=== PATIENT | male | born 1930 | race Asian ===

== ENCOUNTER 2019-01-29 18:14 | Inpatient (IN) | payer MEDICARE, MEDICAID ==
[~2019-01-29] VITALS: Ht 165.1 cm; Wt 80.3 kg
[2019-01-29 18:30] VITALS: BP 158/40
[2019-01-29] MEDS ORDERED: Nitroglycerin Subl 0.4mg tab SL PRN ×2 (18:30→22:15)
[2019-01-29] MEDS ORDERED: Aspirin Baby 81mg ORAL ONE (18:30)
--- NOTE | 2019-01-29 18:30 | NUR ---
ED Nurse Note: Patient brought in to ER by ambulance from [facility] due to chest pain for last 20 minutes. pt aao x 1-2 and both eyes legally blind and bedrest. skin clean and intact but pale. both buttocks pressure ulcer noted. pt is in gown and on surveillance system monitor.
--- NOTE | 2019-01-29 18:37 | Emergency Room Report ---
History of Present Illness General Chief Complaint: Chest Pain Source: EMS Present Illness HPI Disclaimer: Please note that this report is being documented using DRAGON technology. This can lead to erroneous entry secondary to incorrect interpretation by the dictating instrument. 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 States is been intermittent for the past 2 days. Currently centered over the chest and pressure-like. Does not radiate. No associated shortness of breath. Denies any back pain, lightheadedness, loss of consciousness, vomiting, diaphoresis, abdominal pain. Patient is a poor historian PMH: Hypertension, glaucoma, hearing loss, history of brain bleed, status post pacemaker PSH: Unknown Allergies: None listed Social Hx: Denies drug or alcohol use. Allergies: Coded Allergies: No Known Allergies (Unverified , 01/29/19) Nursing Documentation-PMH Past Medical History: No History, Except For Hx Cardiac Problems: No - legally blind Review of Systems All Other Systems: negative except mentioned in HPI Physical Exam Vital Signs Date Time Temp Pulse Resp B/P (MAP) Pulse Ox O2 Delivery O2 Flow Rate FiO2 01/29/19 18:08 54 16 144/44 (77) 99 Room Air General: Awake and alert, no acute distress HEENT: NC/AT. Hazy opacified corneas bilaterally. Vision grossly diminished. Hearing diminished. Dry mucous membranes Chest Wall: No tenderness, no deformity Cardiovascular: Bradycardic, regular rhythm. heart sounds are distant Resp: Normal work of breathing. No cough, wheezing or crackles appreciated Abdomen: Abdomen is soft, obese, nondistended. Nontender Skin: Intact. No abrasions, laceration or rash over the exposed skin MSK: Normal tone and bulk. Moving all extremities. No obvious deformity. No lower extremity edema Neuro: Awake and alert. Mentating appropriately but poor insight into his medical history and a poor historian overall. Medical Decision Making Diagnostic Impression: Primary Impression: Chest pain Additional Impressions: Heart block AV third degree Elevated troponin Anemia ER Course 88-year-old male prior brain bleed, hypertension presents for evaluation of intermittent chest pain. EKG on arrival shows complete heart block with ventricularly paced rhythm at approximately 50 bpm. The patient currently is reporting chest pain. Will give aspirin and nitroglycerin. Cardiac work-up initiated with labs and x-ray. The patient may require for transfer. Vital signs are otherwise stable aside from bradycardia Laboratory Tests Test 01/29/19 18:40 01/29/19 20:10 White Blood Count 8.0 K/UL (4.8-10.8) Red Blood Count 3.12 M/UL (4.70-6.10) L Hemoglobin 9.6 G/DL (14.2-18.0) L Hematocrit 29.1 % (42.0-52.0) L Mean Corpuscular Volume 93 FL (80-99) Mean Corpuscular Hemoglobin 30.6 PG (27.0-31.0) Mean Corpuscular Hemoglobin Concent 32.8 G/DL (32.0-36.0) Red Cell Distribution Width 12.8 % (11.6-14.8) Platelet Count 267 K/UL (150-450) Mean Platelet Volume 5.7 FL (6.5-10.1) L Neutrophils (%) (Auto) 59.1 % (45.0-75.0) Lymphocytes (%) (Auto) 24.0 % (20.0-45.0) Monocytes (%) (Auto) 7.2 % (1.0-10.0) Eosinophils (%) (Auto) 8.3 % (0.0-3.0) H Basophils (%) (Auto) 1.5 % (0.0-2.0) Prothrombin Time 12.7 SEC (9.30-11.50) H Prothromb Time International Ratio 1.2 (0.9-1.1) H Activated Partial Thromboplast Time 26 SEC (23-33) Sodium Level 137 MMOL/L (136-145) Potassium Level 4.7 MMOL/L (3.5-5.1) Chloride Level 105 MMOL/L (98-107) Carbon Dioxide Level 25 MMOL/L (21-32) Anion Gap 7 mmol/L (5-15) Blood Urea Nitrogen 25 mg/dL (7-18) H Creatinine 1.1 MG/DL (0.55-1.30) Estimat Glomerular Filtration Rate mL/min (>60) Glucose Level 115 MG/DL (74-106) H Calcium Level 9.0 MG/DL (8.5-10.1) Total Bilirubin 0.3 MG/DL (0.2-1.0) Aspartate Amino Transf (AST/SGOT) 46 U/L (15-37) H Alanine Aminotransferase (ALT/SGPT) 74 U/L (12-78) Alkaline Phosphatase 156 U/L (46-116) H Total Creatine Kinase 187 U/L (26-308) Creatine Kinase MB 1.8 NG/ML (0.0-3.6) Creatine Kinase MB Relative Index 0.9 Troponin I 0.060 ng/mL (0.000-0.056) 0.060 ng/mL (0.000-0.056) Pro-B-Type Natriuretic Peptide 3690 pg/mL (0-125) H Total Protein 7.0 G/DL (6.4-8.2) Albumin 2.3 G/DL (3.4-5.0) L Globulin 4.7 g/dL Albumin/Globulin Ratio 0.5 (1.0-2.7) L EKG Diagnostic Results EKG Time: 18:09 Rate: bradycardiac Other Impression Third-degree heart block. Ventricularly paced rhythm. Bradycardia ASA given to the pt in ED: Yes Rhythm Strip Diag. Results Rhythm Strip Time: 18:09 EP Interpretation: yes Rate: 50s Other Impression Bradycardia with third-degree AV block, paced rhythm Chest X-Ray Diagnostic Results Chest X-Ray Diagnostic Results : Chest X-Ray Ordered: Yes # of Views/Limited/Complete: 1 View Indication: Chest Pain EP Interpretation: Yes PA Xray: Interpretation reviewed Interpretation: no consolidation, no pneumothorax Impression: Other - Cardiomegaly. Electronically Signed by: Electronically signed by Dr. Germain Saez Other X-Ray Diagnostic Results Other X-Ray Diagnostic Results : Electronically Signed by: Cardiomegaly Reevaluation Time: 20:00 Last Vital Signs Date Time Temp Pulse Resp B/P (MAP) Pulse Ox O2 Delivery O2 Flow Rate FiO2 01/29/19 18:08 54 16 144/44 (77) 99 Room Air Status: unchanged Reevaluation Impression Labs show anemia with a hemoglobin of 9.6, normal renal function with a creatinine 1.1, electrolytes within normal limits, elevated troponin 0 0.06. Repeat pending. Discussed with physician from [facility] as he is a [facility] patient. Their last EKG from 2017 showed normal sinus rhythm. Presuming that this was a new heart block and at that time no pacer was visible on chest x-ray only a few of the beats appear to have a pacing spike prior to the QRS complex they declined transfer to their facility as he was deemed too unstable. I then plan to admit the patient to our intensive care unit however on discussion with the covering physician, Dr. Colon, he was able to access records from [facility]. The patient had been admitted and discharged from their facility for chest pain and third-degree AV block after receiving a [employer] wireless pacemaker on 01/23. He was discharged on 01/24 though his EKG at that time had return to normal sinus rhythm. Since he is again in third-degree AV block and experience any chest pain he will be admitted to our stepdown unit. Vital signs remained stable. Disposition: ADMITTED INPATIENT Condition: Serious Germain Saez MD Jan 29, 2019 18:37
--- NOTE | 2019-01-29 18:37 | NUR ---
ED Nurse Note: x-ray at bedside.
--- NOTE | 2019-01-29 18:53 | NUR ---
ED Nurse Note: Called lab and spoke with Honey to draw blood for the patient.
[2019-01-29 18:58] LABS: INR 1.2 (0.9-1.1)
--- NOTE | 2019-01-29 18:58 | NUR ---
ED Nurse Note: Swallen testicles observed. no bleeding no drainage present. Both buttocks pressure ulcer noted. Addendum: 01/29/19 at 1910 by [email or web address] ED Nurse Note: Swallen testicles and scrotum observed. no bleeding no drainage present. Both buttocks pressure ulcer noted.
[2019-01-29 18:59] LABS: BASOPHILS % (AUTO) 1.5 % (0.0-2.0); EOSINOPHILS % (AUTO) 8.3 % (0.0-3.0); HEMATOCRIT 29.1 % (42.0-52.0); HEMOGLOBIN 9.6 G/DL (14.2-18.0); MEAN CORPUSCULAR VOLUME 93 FL (80-99); MONOCYTES % (AUTO) 7.2 % (1.0-10.0); NEUTROPHILS % (AUTO) 59.1 % (45.0-75.0); PLATELET COUNT 267 K/UL (150-450); RED BLOOD COUNT 3.12 M/UL (4.70-6.10); RED CELL DISTRIBUTION WIDTH 12.8 % (11.6-14.8)
--- NOTE | 2019-01-29 18:59 | NUR ---
ED Nurse Note: wound picture taken. will update.
[2019-01-29 19:00] VITALS: BP 145/106
[2019-01-29 19:02] LABS: ANION GAP 7 mmol/L (5-15); BLOOD UREA NITROGEN 25 mg/dL (7-18); CARBON DIOXIDE 25 MMOL/L (21-32); CHLORIDE 105 MMOL/L (98-107); CREATININE 1.1 MG/DL (0.55-1.30); POTASSIUM 4.7 MMOL/L (3.5-5.1); SODIUM 137 MMOL/L (136-145)
--- NOTE | 2019-01-29 19:05 | NUR ---
HAND-OFF: Report given to NEGAR Paz. endorsed that urine sample needs to be collected.
--- NOTE | 2019-01-29 19:15 | NUR ---
ED Nurse Note: informed ermd that pt is bradycardiac at 34.
[2019-01-29 19:17] LABS: ALANINE AMINOTRANSFERASE 74 U/L (12-78); ALBUMIN 2.3 G/DL (3.4-5.0); ALBUMIN/GLOBULIN RATIO 0.5 (1.0-2.7); ALKALINE PHOSPHATASE 156 U/L (46-116); ASPARTATE AMINO TRANSFERASE 46 U/L (15-37); BILIRUBIN,TOTAL 0.3 MG/DL (0.2-1.0); CKMB 1.8 NG/ML (0.0-3.6); CREATINE KINASE 187 U/L (26-308)
--- NOTE | 2019-01-29 19:20 | NUR ---
ED Nurse Note: unable to upload wound photo due to malfunctioning system.
--- NOTE | 2019-01-29 19:25 | NUR ---
ED Nurse Note: system started functioning again and photo has been updated.
--- NOTE | 2019-01-29 19:25 | NUR ---
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 unable to obtain urine. ermd aware.
[2019-01-29] MEDS ORDERED: Atropine Sulfate 0.4mg/ml inj 20ML IVP ONE (19:30)
[2019-01-29] MEDS ORDERED: Atropine Sulfate 0.4mg/ml inj IVP ONE (19:30)
--- NOTE | 2019-01-29 20:10 | NUR ---
ED Nurse Note: repeat troponin sent to lab
[2019-01-29 20:13] VITALS: BP 161/47
[2019-01-29] MEDS ORDERED: BRIMONIDINE TART5 ML BOTH EYES (20:21)
[2019-01-29] MEDS ORDERED: COLACE100 MG ORAL (20:26)
[2019-01-29] MEDS ORDERED: GLUCOPHAGE500 MG ORAL (20:26)
[2019-01-29] MEDS ORDERED: MURO-12815 ML OP (20:26)
[2019-01-29] MEDS ORDERED: BETIMOL5 M2 OP (20:26)
[2019-01-29] MEDS ORDERED: SENNA8.6 M2 PO (20:26)
[2019-01-29] MEDS ORDERED: NORCO 5-325 TA1 EACH ORAL (20:26)
[2019-01-29] MEDS ORDERED: LATANOPROST 0.7.5 ML OP (20:26)
[2019-01-29] MEDS ORDERED: ATORVASTATIN CA10 MG ORAL (20:26)
[2019-01-29] MEDS ORDERED: NORVASC10 MG ORAL (20:26)
[2019-01-29] MEDS ORDERED: CALCIUM 500 +1 EAC3 PO (20:26)
[2019-01-29] MEDS ORDERED: HYTRIN5 MG PO (20:26)
[2019-01-29] MEDS ORDERED: PHENOBARBITAL30 MG ORAL (20:26)
[2019-01-29] MEDS ORDERED: LEVOXYL50 MCG ORAL (20:26)
--- NOTE | 2019-01-29 21:00 | NUR ---
NURSE NOTES: Received patient from ED nurse Brandi BILLS. Patient is awake and oriented x2, on room air O2 saturation at 96%. IV site is Right wrist 18g and a Left hand 20g, both patent and asymptomatic. Addendum: 01/29/19 at 2120 by Genoveva Clement RN Bed is locked, placed in lowest position, side rails up x3, bed alarm on, call light within reach. Will continue to monitor.
--- NOTE | 2019-01-29 21:05 | NUR ---
ED Nurse Note: Pt brought up with augustine RN and nena EMT. pt is aox1. pt denies pain at the moment. pt shows no acute sign of distress. pt on room air saturating at 98 %. pt had no belongings.
[2019-01-29] MEDS ORDERED: Morphine Sulfate 2mg/ml Inj(IV/IM USE ONLY) IVP PRN (22:15)
[2019-01-29] MEDS ORDERED: Miralax 17gm pkt ORAL PRN (22:15)
[2019-01-29] MEDS ORDERED: HYDROcodone/Acetamin 5/325 tab ORAL PRN (22:15)
[2019-01-29] MEDS ORDERED: Enalaprilat 2.5mg/2ml Inj IV PRN (22:15)
[2019-01-29] MEDS ORDERED: dilTIAZem HCl 25mg/5ml Inj IV PRN (22:15)
[2019-01-29] MEDS ORDERED: Albuterol/Ipratropium 3ml neb HHN PRN (22:15)
[2019-01-29] MEDS ORDERED: Enalaprilat 1.25mg/ml Inj IV PRN (22:30)
[2019-01-30 04:00] VITALS: BP 153/75
[2019-01-30 05:05] LABS: INR 1.2 (0.9-1.1)
[2019-01-30 05:14] LABS: BASOPHILS % (AUTO) 1.4 % (0.0-2.0); EOSINOPHILS % (AUTO) 10.3 % (0.0-3.0); HEMATOCRIT 27.5 % (42.0-52.0); HEMOGLOBIN 9.1 G/DL (14.2-18.0); LYMPHOCYTES % (AUTO) 23.7 % (20.0-45.0); MEAN CORPUSCULAR VOLUME 93 FL (80-99); MONOCYTES % (AUTO) 9.2 % (1.0-10.0); NEUTROPHILS % (AUTO) 55.6 % (45.0-75.0); PLATELET COUNT 264 K/UL (150-450); RED BLOOD COUNT 2.96 M/UL (4.70-6.10); RED CELL DISTRIBUTION WIDTH 13.2 % (11.6-14.8); WHITE BLOOD COUNT 6.4 K/UL (4.8-10.8)
[2019-01-30 05:33] LABS: ANION GAP 7 mmol/L (5-15); BLOOD UREA NITROGEN 21 mg/dL (7-18); CALCIUM 8.4 MG/DL (8.5-10.1); CARBON DIOXIDE 23 MMOL/L (21-32); CHLORIDE 107 MMOL/L (98-107); PHOSPHORUS 3.7 MG/DL (2.5-4.9); POTASSIUM 3.8 MMOL/L (3.5-5.1); SODIUM 137 MMOL/L (136-145)
[2019-01-30 06:01] LABS: CHOLESTEROL 121 MG/DL (< 200); HDL CHOLESTEROL 37 MG/DL (40-60); TRIGLYCERIDES 92 MG/DL (30-150)
[2019-01-30] MEDS: NovoLOG Insulin Flexpen SUBQ SCH ×4 (06:30→21:00)
[2019-01-30] MEDS: Heparin 5000 units/ml inj SUBQ SCH ×3 (06:39→21:00)
--- NOTE | 2019-01-30 07:37 | NUR ---
NURSE NOTES: Received pt from NEGAR Smith in stable condition with no cardiopulmonary distress noted. Pt is asleep in bed, arousable to touch on RA. Urinal noted at bedside. Skin alterations noted. Pt has a LH 20g IV and RW 18g IV. Bed is in lowest position, side rails up x 2, call light within reach, bed alarm on. Will continue to monitor pt.
--- NOTE | 2019-01-30 07:37 | NUR ---
HAND-OFF: Report given to Naz BILLS. Patient in stable condition.
--- NOTE | 2019-01-30 07:40 | NUR ---
NURSE NOTES: Dr. Colon aware of pt's enlarged testicles and states it is age-related. No new orders.
[2019-01-30 08:00] VITALS: BP 147/63
[2019-01-30] MEDS: Aspirin Baby 81mg ORAL SCH (09:16)
--- NOTE | 2019-01-30 10:39 | Diagnostic Imaging Report ---
Indication: Dyspnea Comparison: None A single view chest radiograph was obtained. Findings: Left lung base is not seen due to soft tissue attenuation. There is suggestion of mild vascular congestion within the lungs. The heart is enlarged. Bones are osteopenic. IMPRESSION: Mild pulmonary vascular congestion suspected. Left lung base not well evaluated. Underlying pleural effusion infiltrate or other pathology not excluded
--- NOTE | 2019-01-30 11:43 | Consultation ---
History of Present Illness General Date patient seen: Jan 30, 2019 Chief Complaint: Chest Pain Present Illness Allergies: Coded Allergies: No Known Allergies (Unverified , 01/29/19) Medication History Scheduled Amlodipine Besylate (Norvasc), 10 MG ORAL DAILY, (Reported) Atorvastatin Calcium* (Lipitor*), 10 MG ORAL BEDTIME, (Reported) Brimonidine Tartrate* (Alphagan*), 1 DROP BOTH EYES TID, (Reported) Docusate Sodium* (Colace*), 100 MG ORAL DAILY, (Reported) Levothyroxine Sodium* (Levoxyl*), 50 MCG ORAL DAILY, (Reported) Metformin Hcl* (Glucophage*), 500 MG ORAL DAILY, (Reported) Phenobarbital* (Phenobarbital*), 30 MG ORAL THREE TIMES A DAY, (Reported) Terazosin HCl (Terazosin HCl), 5 MG PO QHS, (Reported) Scheduled PRN Hydrocodone Bit/Acetaminophen 5-325* (Walpole 5-325*), 1 TAB ORAL Q4H PRN for For Pain, (Reported) Miscellaneous Medications Calcium Carbonate/Vitamin D3 (Calcium 500 + D Tablet), 1 EACH PO, (Reported) Latanoprost/Pf (Latanoprost 0.005% Eye Drop), 7.5 ML OP, (Reported) Sennosides (Senna), 8.6 MG PO, (Reported) Sodium Chloride (Karin-128), 15 ML OP, (Reported) Timolol (Betimol), 5 ML OP, (Reported) Patient History Healthcare decision maker Resuscitation status Full Code Advanced Directive on File Yes Past Medical/Surgical History Past Medical/Surgical History: (1) Hypertension (2) Diabetes mellitus (3) Adult hypothyroidism Review of Systems Endocrine: Reports: no symptoms Hematologic/Lymphatic: Reports: no symptoms Physical Exam General Appearance: WD/WN, no apparent distress, alert Lines, tubes and drains: peripheral HEENT: normocephalic, atraumatic Neck: non-tender, normal alignment Respiratory/Chest: chest wall non-tender, normal breath sounds Breasts: no masses Cardiovascular/Chest: normal peripheral pulses, normal rate Abdomen: normal bowel sounds, non tender Genitourinary/Rectal: normal genital exam Extremities: normal range of motion Neurologic: staff development educator II-XII grossly normal Last 24 Hour Vital Signs Date Time Temp Pulse Resp B/P (MAP) Pulse Ox O2 Delivery O2 Flow Rate FiO2 01/30/19 09:16 67 147/63 01/30/19 08:00 97.5 67 22 147/63 (91) 94 01/30/19 08:00 65 01/30/19 04:00 97.9 77 20 153/75 (101) 96 01/30/19 04:00 Room Air 01/30/19 03:24 69 01/30/19 01:04 82 01/30/19 00:00 Room Air 01/29/19 21:28 Room Air 01/29/19 21:14 98.4 55 22 132/52 98 Room Air 01/29/19 20:13 98.4 58 21 161/47 96 Room Air 01/29/19 19:00 98.8 50 17 145/106 98 Room Air 01/29/19 18:47 158/40 01/29/19 18:30 45 18 Room Air 01/29/19 18:30 99.8 45 16 158/40 100 Room Air 01/29/19 18:08 54 16 144/44 (77) 99 Room Air Intake and Output 01/29/19 01/30/19 19:00 07:00 Intake Total 0 ml Output Total 300 ml Balance 0 ml -300 ml Intake Oral 0 ml Output Urine Total 300 ml # Voids 1 Laboratory Tests Test 01/29/19 18:40 01/29/19 20:10 01/30/19 03:25 White Blood Count 8.0 K/UL (4.8-10.8) 6.4 K/UL (4.8-10.8) Red Blood Count 3.12 M/UL (4.70-6.10) L 2.96 M/UL (4.70-6.10) L Hemoglobin 9.6 G/DL (14.2-18.0) L 9.1 G/DL (14.2-18.0) L Hematocrit 29.1 % (42.0-52.0) L 27.5 % (42.0-52.0) L Mean Corpuscular Volume 93 FL (80-99) 93 FL (80-99) Mean Corpuscular Hemoglobin 30.6 PG (27.0-31.0) 30.6 PG (27.0-31.0) Mean Corpuscular Hemoglobin Concent 32.8 G/DL (32.0-36.0) 32.9 G/DL (32.0-36.0) Red Cell Distribution Width 12.8 % (11.6-14.8) 13.2 % (11.6-14.8) Platelet Count 267 K/UL (150-450) 264 K/UL (150-450) Mean Platelet Volume 5.7 FL (6.5-10.1) L 5.2 FL (6.5-10.1) L Neutrophils (%) (Auto) 59.1 % (45.0-75.0) 55.6 % (45.0-75.0) Lymphocytes (%) (Auto) 24.0 % (20.0-45.0) 23.7 % (20.0-45.0) Monocytes (%) (Auto) 7.2 % (1.0-10.0) 9.2 % (1.0-10.0) Eosinophils (%) (Auto) 8.3 % (0.0-3.0) H 10.3 % (0.0-3.0) H Basophils (%) (Auto) 1.5 % (0.0-2.0) 1.4 % (0.0-2.0) Prothrombin Time 12.7 SEC (9.30-11.50) H 13.0 SEC (9.30-11.50) H Prothromb Time International Ratio 1.2 (0.9-1.1) H 1.2 (0.9-1.1) H Activated Partial Thromboplast Time 26 SEC (23-33) 28 SEC (23-33) Sodium Level 137 MMOL/L (136-145) 137 MMOL/L (136-145) Potassium Level 4.7 MMOL/L (3.5-5.1) 3.8 MMOL/L (3.5-5.1) Chloride Level 105 MMOL/L (98-107) 107 MMOL/L (98-107) Carbon Dioxide Level 25 MMOL/L (21-32) 23 MMOL/L (21-32) Anion Gap 7 mmol/L (5-15) 7 mmol/L (5-15) Blood Urea Nitrogen 25 mg/dL (7-18) H 21 mg/dL (7-18) H Creatinine 1.1 MG/DL (0.55-1.30) 1.0 MG/DL (0.55-1.30) Estimat Glomerular Filtration Rate mL/min (>60) mL/min (>60) Glucose Level 115 MG/DL (74-106) H 90 MG/DL (74-106) Calcium Level 9.0 MG/DL (8.5-10.1) 8.4 MG/DL (8.5-10.1) L Total Bilirubin 0.3 MG/DL (0.2-1.0) Aspartate Amino Transf (AST/SGOT) 46 U/L (15-37) H Alanine Aminotransferase (ALT/SGPT) 74 U/L (12-78) Alkaline Phosphatase 156 U/L (46-116) H Total Creatine Kinase 187 U/L (26-308) Creatine Kinase MB 1.8 NG/ML (0.0-3.6) Creatine Kinase MB Relative Index 0.9 Troponin I 0.060 ng/mL (0.000-0.056) 0.060 ng/mL (0.000-0.056) 0.049 ng/mL (0.000-0.056) Pro-B-Type Natriuretic Peptide 3690 pg/mL (0-125) H Total Protein 7.0 G/DL (6.4-8.2) Albumin 2.3 G/DL (3.4-5.0) L Globulin 4.7 g/dL Albumin/Globulin Ratio 0.5 (1.0-2.7) L Phosphorus Level 3.7 MG/DL (2.5-4.9) Magnesium Level 1.5 MG/DL (1.8-2.4) L C-Reactive Protein, Quantitative 3.8 mg/dL (0.00-0.90) H Triglycerides Level 92 MG/DL (30-150) Cholesterol Level 121 MG/DL (< 200) LDL Cholesterol 70 mg/dL (<100) HDL Cholesterol 37 MG/DL (40-60) L Cholesterol/HDL Ratio 3.3 (3.3-4.4) Thyroid Stimulating Hormone (TSH) 8.176 uiU/mL (0.358-3.740) Height (Feet): 5 Height (Inches): 5.00 Weight (Pounds): 200 Medications Current Medications Medications (Trade) Dose Ordered Sig/Shari Route PRN Reason Start Time Stop Time Status Last Admin Dose Admin Acetaminophen (Tylenol) 650 mg Q4H PRN ORAL FEVER 01/29/19 22:15 02/28/19 22:14 Acetaminophen/ Hydrocodone Bitart (Wal[place] 5/325) 1 tab Q4H PRN ORAL For Pain 01/29/19 22:15 02/05/19 22:14 Albuterol/ Ipratropium (Albuterol/ Ipratropium) 3 ml Q4H PRN HHN Shortness of Breath 01/29/19 22:15 02/03/19 22:14 Amlodipine Besylate (Norvasc) 10 mg DAILY ORAL 01/30/19 09:00 03/01/19 08:59 01/30/19 09:16 Aspirin (ASA) 162 mg DAILY ORAL 01/30/19 09:00 03/01/19 08:59 01/30/19 09:16 Dextrose (Dextrose 50%) 25 ml Q30M PRN IV Hypoglycemia 01/29/19 22:15 02/28/19 22:14 Dextrose (Dextrose 50%) 50 ml Q30M PRN IV Hypoglycemia 01/29/19 22:15 02/01/19 22:14 Diltiazem HCl (Cardizem) 10 mg Q1H PRN IV heart rate more than 120, 01/29/19 22:15 02/28/19 22:14 Enalaprilat (Vasotec) 2.5 mg Q6H PRN IV sbp more than 160 01/29/19 22:30 02/28/19 22:14 Heparin Sodium (Porcine) (Heparin 5000 units/ml) 5,000 units EVERY 8 HOURS SUBQ 01/30/19 06:00 03/01/19 05:59 01/30/19 06:39 Insulin Aspart (NovoLOG) BEFORE MEALS AND HS SUBQ 01/30/19 06:30 03/01/19 06:29 Levothyroxine Sodium (Synthroid) 50 mcg DAILY@0630 ORAL 01/30/19 06:30 03/01/19 06:29 01/30/19 06:39 Morphine Sulfate (Morphine Sulfate) 2 mg Q4H PRN IVP severe Pain (Pain Scale 7-10) 01/29/19 22:15 02/05/19 22:14 Nitroglycerin (Ntg) 0.4 mg Q5M PRN SL Prn Chest Pain 01/29/19 22:15 02/28/19 22:14 Ondansetron HCl (Zofran) 4 mg Q6H PRN IVP Nausea & Vomiting 01/29/19 22:15 02/28/19 22:14 Pantoprazole (Protonix) 40 mg DAILY ORAL 01/30/19 09:00 03/01/19 08:59 01/30/19 09:15 Polyethylene Glycol (Miralax) 17 gm DAILYPRN PRN ORAL Constipation 01/29/19 22:15 02/28/19 22:14 Sennosides (Senokot) 8.6 mg BEDTIME ORAL 01/30/19 21:00 03/01/19 20:59 Temazepam (Restoril) 15 mg HSPRN PRN ORAL Insomnia 01/29/19 22:15 02/05/19 22:14 Assessment/Plan Problem List: (1) Symptomatic bradycardia ICD Codes: R00.1 - Bradycardia, unspecified SNOMED: 00071706, 823466916 (2) ACS (acute coronary syndrome) ICD Codes: I24.9 - Acute ischemic heart disease, unspecified SNOMED: 818525047 (3) Hypertension ICD Codes: I10 - Essential (primary) hypertension SNOMED: 60808994 (4) Diabetes mellitus ICD Codes: E11.9 - Type 2 diabetes mellitus without complications SNOMED: 83845527 (5) Adult hypothyroidism ICD Codes: E03.9 - Hypothyroidism, unspecified SNOMED: 43779758 Assessment/Plan: dot monitoring cardiology evaluation echocardiogram dvt prophylaxis Eliseo Pedraza MD Jan 30, 2019 11:43
[2019-01-30 12:00] VITALS: BP 117/51
--- NOTE | 2019-01-30 12:13 | Cardiac Electrophysiology PN ---
Subjective Subjective [id number] Objective Last 24 Hour Vital Signs Date Time Temp Pulse Resp B/P (MAP) Pulse Ox O2 Delivery O2 Flow Rate FiO2 01/30/19 09:16 67 147/63 01/30/19 08:00 Room Air 01/30/19 08:00 97.5 67 22 147/63 (91) 94 01/30/19 08:00 65 01/30/19 04:00 97.9 77 20 153/75 (101) 96 01/30/19 04:00 Room Air 01/30/19 03:24 69 01/30/19 01:04 82 01/30/19 00:00 Room Air 01/29/19 21:28 Room Air 01/29/19 21:14 98.4 55 22 132/52 98 Room Air 01/29/19 20:13 98.4 58 21 161/47 96 Room Air 01/29/19 19:00 98.8 50 17 145/106 98 Room Air 01/29/19 18:47 158/40 01/29/19 18:30 45 18 Room Air 01/29/19 18:30 99.8 45 16 158/40 100 Room Air 01/29/19 18:08 54 16 144/44 (77) 99 Room Air Intake and Output 01/29/19 01/30/19 19:00 07:00 Intake Total 0 ml Output Total 300 ml Balance 0 ml -300 ml Intake Oral 0 ml Output Urine Total 300 ml # Voids 1 Laboratory Tests Test 01/29/19 18:40 01/29/19 20:10 01/30/19 03:25 White Blood Count 8.0 K/UL (4.8-10.8) 6.4 K/UL (4.8-10.8) Red Blood Count 3.12 M/UL (4.70-6.10) L 2.96 M/UL (4.70-6.10) L Hemoglobin 9.6 G/DL (14.2-18.0) L 9.1 G/DL (14.2-18.0) L Hematocrit 29.1 % (42.0-52.0) L 27.5 % (42.0-52.0) L Mean Corpuscular Volume 93 FL (80-99) 93 FL (80-99) Mean Corpuscular Hemoglobin 30.6 PG (27.0-31.0) 30.6 PG (27.0-31.0) Mean Corpuscular Hemoglobin Concent 32.8 G/DL (32.0-36.0) 32.9 G/DL (32.0-36.0) Red Cell Distribution Width 12.8 % (11.6-14.8) 13.2 % (11.6-14.8) Platelet Count 267 K/UL (150-450) 264 K/UL (150-450) Mean Platelet Volume 5.7 FL (6.5-10.1) L 5.2 FL (6.5-10.1) L Neutrophils (%) (Auto) 59.1 % (45.0-75.0) 55.6 % (45.0-75.0) Lymphocytes (%) (Auto) 24.0 % (20.0-45.0) 23.7 % (20.0-45.0) Monocytes (%) (Auto) 7.2 % (1.0-10.0) 9.2 % (1.0-10.0) Eosinophils (%) (Auto) 8.3 % (0.0-3.0) H 10.3 % (0.0-3.0) H Basophils (%) (Auto) 1.5 % (0.0-2.0) 1.4 % (0.0-2.0) Prothrombin Time 12.7 SEC (9.30-11.50) H 13.0 SEC (9.30-11.50) H Prothromb Time International Ratio 1.2 (0.9-1.1) H 1.2 (0.9-1.1) H Activated Partial Thromboplast Time 26 SEC (23-33) 28 SEC (23-33) Sodium Level 137 MMOL/L (136-145) 137 MMOL/L (136-145) Potassium Level 4.7 MMOL/L (3.5-5.1) 3.8 MMOL/L (3.5-5.1) Chloride Level 105 MMOL/L (98-107) 107 MMOL/L (98-107) Carbon Dioxide Level 25 MMOL/L (21-32) 23 MMOL/L (21-32) Anion Gap 7 mmol/L (5-15) 7 mmol/L (5-15) Blood Urea Nitrogen 25 mg/dL (7-18) H 21 mg/dL (7-18) H Creatinine 1.1 MG/DL (0.55-1.30) 1.0 MG/DL (0.55-1.30) Estimat Glomerular Filtration Rate mL/min (>60) mL/min (>60) Glucose Level 115 MG/DL (74-106) H 90 MG/DL (74-106) Calcium Level 9.0 MG/DL (8.5-10.1) 8.4 MG/DL (8.5-10.1) L Total Bilirubin 0.3 MG/DL (0.2-1.0) Aspartate Amino Transf (AST/SGOT) 46 U/L (15-37) H Alanine Aminotransferase (ALT/SGPT) 74 U/L (12-78) Alkaline Phosphatase 156 U/L (46-116) H Total Creatine Kinase 187 U/L (26-308) Creatine Kinase MB 1.8 NG/ML (0.0-3.6) Creatine Kinase MB Relative Index 0.9 Troponin I 0.060 ng/mL (0.000-0.056) 0.060 ng/mL (0.000-0.056) 0.049 ng/mL (0.000-0.056) Pro-B-Type Natriuretic Peptide 3690 pg/mL (0-125) H Total Protein 7.0 G/DL (6.4-8.2) Albumin 2.3 G/DL (3.4-5.0) L Globulin 4.7 g/dL Albumin/Globulin Ratio 0.5 (1.0-2.7) L Phosphorus Level 3.7 MG/DL (2.5-4.9) Magnesium Level 1.5 MG/DL (1.8-2.4) L C-Reactive Protein, Quantitative 3.8 mg/dL (0.00-0.90) H Triglycerides Level 92 MG/DL (30-150) Cholesterol Level 121 MG/DL (< 200) LDL Cholesterol 70 mg/dL (<100) HDL Cholesterol 37 MG/DL (40-60) L Cholesterol/HDL Ratio 3.3 (3.3-4.4) Thyroid Stimulating Hormone (TSH) 8.176 uiU/mL (0.358-3.740) William Gant MD Jan 30, 2019 12:13
--- NOTE | 2019-01-30 13:00 | NUR ---
NURSE NOTES: Dr. Mendoza came in to see pt and is aware of troponin level trending down.
--- NOTE | 2019-01-30 13:30 | NUR ---
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 99.8 HR 54 RR 16 B/P 144/44 BUN 25 BNP 3690 AST 46 IS; ATROPINE IV NTG SL ADMITTED TO STEP DOWN@ 2102 STEP DOWN STATUS DCP PENDING HOSPITAL STAY
--- NOTE | 2019-01-30 13:40 | NUR ---
NOTE: REFERRED FOR SWALLOW EVAL BY DR MANZANARES, SEE FULL SWALLOW EVAL REPORT IN CARE ACTIVITY SECTION. DYSPHAGIA RISK FACTORS FOR THIS 88 Y.O.M.: ACUTE BRADYCARDIA, ACS, LUNGS PER CXR 01/29/19 MILD PULMONARY CONGESTION SUSPECTED WITH UNDERLYING PLEURAL EFFUSION, INFILTRATE OR OTHER PATHOLOGY NOT EXCLUDED (L LUNG BASE NOT WELL EVALUATED). H/O ADVANCED AGE, DEMENTIA, SUBDURAL HEMORRHAGE (NONTRAUMA), SZ D/O, GERD, BILATERAL BLINDNESS, PACEMAKER, DM2, HTN. PER POLST OK TO HAVE ARTIFICIAL NUTRITION / TF IF NEEDS PER SNF ON A KATHERIN/CC [facility] SOFT CHOPPED AND THIN LIQUID DIET. CURRENTLY ON A CCHO-MED SOFT CHEW DIET AND THIN LIQUIDS WITH POOR INTAKE 25% BUT NO OVERT S/S OF ASPIRATION PER DESIGN RELEASE ENGINEER AND RN (JUAN). NO PROBLEM WITH CRUSHED MEDS AND APPLESAUCE PER RN. ALERT BUT EYES CLOSED, DID NOT FOLLOW ORAL COMMANDS. SEEMS CONFUSED BUT CAN EXPRESS SOME BASIC NEEDS. TENDS TO KEEP HIS CHIN DOWN. INITIAL IMPRESSIONS: S/S OF AT LEAST A MILD-MODERATE ORAL PREP AND OROPHARYNGEAL DYSPHAGIA WITH INCREASED ORAL PREP AND OROPHARYNGEAL TRANSIT TIMES (PARTICULARLY WITH MASTICATED SOLIDS). GROSSLY FUNCTIONAL SWALLOW WITH NECTAR THICK LIQUIDS VIA CUP/STRAW GIVEN THIN LIQUIDS SEQUENTIAL SIPS VIA STRAW (3 OZ WATER CRISS SWALLOW PROTOCOL) NEEDS TO TAKE A BREATH OR PAUSE AFTER 3RD SIP, NO OVERT ASPIRATION. GIVEN PUREED TSP, TAKES 3-4 SECONDS FOR OP TRANSIT TIMES (TENDS TO CHEW) BUT HAS FAIR HYOLARYNGEAL EXCURSION AND NO ORAL RESIDUE NOR OVERT ASPIRATION. GIVEN MASTICATED SOLID (BITE OF BREAD) HAS INCREASED ORAL PREP TRANSIT TIMES 15 SEC AND NEEDED A LIQUID WASH TO CLEAR RESIDUE BUT NO OVERT ASPIRATION. SILENT ASPIRATION RISK GIVEN DEMENTIA DX WITH ? INFILTRATE PER CXR POOR INTAKE RECOMMENDATIONS: CONSERVATIVELY, CONSIDER MOD BARIUM SWALLOW STUDY TO FURTHER ASSESS SWALLOW, DETERMINE SILENT ASPIRATION, AND ATTEMPT TRIAL TX TECHNIQUES. IF PO CONTINUES, CONSIDER DOWNGRADING TO [facility] SOFT GROUND AND NECTAR THICK LIQUIDS WITH POSTED ASP/REFLUX PRECAUTIONS AND ONE TO ONE FEEDING. SEND HIGH RACHNA SUP AND COMPLETE CALORIE COUNT PER RD PER SNF ON A KATHERIN AND CCHO CARB CONTROLLED DIET. EDUCATED AND TRAINED JUAN BILLS IN POSTED ASPIRATION/REFLUX PRECAUTIONS. SKILLED DYSPHAGIA MANAGEMENT/TX AND COG-COM EVAL/TX FOR COM TIPS D/W STAFF AND PATIENT (WHO IS CONFUSED).
--- NOTE | 2019-01-30 14:13 | NUR ---
HAND-OFF: Report given to Marj Luther RN. Pt in stable condition.
[2019-01-30 15:36] VITALS: BP 137/57
--- NOTE | 2019-01-30 15:50 | NUR ---
NURSE NOTES: Received pt back from Marj in stable, unchanged condition. Will continue to monitor pt.
--- NOTE | 2019-01-30 16:00 | NUR ---
NURSE NOTES: Left message for Dr. Gant that pt is now V-pacing at 50bpm. Awaiting call back.
--- NOTE | 2019-01-30 16:23 | NUR ---
NURSE NOTES:WOUND CARE NOTES:Pt from [facility] whom presented on admission with contractures , grossly enlarged scrotum, and pressure injuries to R and L buttocks.. R buttocks has an area from previous wound that is mai pink with scattered purple areas within base of wound and Hyperpigmented borders. Pt complained of tenderness when minimally palpated. L buttocks scarred from previous wound. Base of wound macerated with non-blanchable erythema.Hyperpigmented borders . Site is also tender when minimally palpated.. Scrotum is grossly enlarged with scattered hyperpigmented scars from previous wounds. Non-blanchable erythema without fluctuance noted to R and L heels. No other skin concerns noted. Tx.Plan: Apply Moisture Barrier Paste to R buttocks. Cover with Optifoam drsg. change every 3 days and prn. Apply Moisture Barrier paste to L buttocks. Cover with Optifoam drsg. Change every 3 days and prn. Apply Moisture Barrier Paste to bilat groin and scrotal area with each incontinence care. Apply Cavilon Skin Barrier to both heels. Cover each heel with Optifoam drsg. Change every 7 days and prn. Reposition at least every 2 hours or as tolerated. Off-load heels with pillow. Place pillow between knees.
--- NOTE | 2019-01-30 16:53 | NUR ---
NURSE NOTES: Pt has very poor oral intake, ate only 10% dinner. HY=[id number]. Insulin dose held.
--- NOTE | 2019-01-30 18:15 | Consultation ---
DATE OF CONSULTATION: 01/30/2019 CARDIOLOGY CONSULTATION CONSULTING PHYSICIAN: William Gant M.D. REFERRING PHYSICIAN: Ad Colon M.D. REASON FOR CONSULTATION: Heart block and bradycardia in a patient with recent leadless pacemaker placement. HISTORY OF PRESENT ILLNESS: The patient is an 88-year-old gentleman with history of hypertension, dementia, bilateral glaucoma, is legally blind, as well as history of obesity, conversion disorder and history of brain bleed, was brought to the emergency room complaining of chest pain that has been going on for the last two days. The patient's pain was pressure-like, but did not have any shortness of breath, nausea, vomiting, or diaphoresis. The patient underwent a leadless Medtronic pacemaker implantation at [facility] in December. At the time of my evaluation, he is comfortable. Denies any chest pain. He is extremely poor historian. REVIEW OF SYSTEMS: Negative other than what was mentioned in the history of present illness. PAST MEDICAL HISTORY: As mentioned above. FAMILY HISTORY: Noncontributory. SOCIAL HISTORY: [place] Does not smoke or drink alcohol. PHYSICAL EXAMINATION: VITAL SIGNS: Show blood pressure of 147/63, pulse 67, respirations 18, and temperature 97.5. HEAD AND NECK: Showed no JVD. LUNGS: Clear. CARDIOVASCULAR: Shows regular S1 and S2 with no gallop or murmur. He is bradycardic. ABDOMEN: Soft. EXTREMITIES: 1+ pitting edema. LABORATORY AND DIAGNOSTIC DATA: His labs show white count of 6.4, hematocrit 27.5, and platelet count 264,000. Sodium 137, potassium 3.8, BUN 32, and creatinine 1.0. Troponin 0.06, 0.07, and 0.049. ASSESSMENT AND PLAN: 1. Troponin leak. The levels are nonspecific and flat. The patient has dehydration and this may be related to that. His EKG is not interpretable and is mostly ventricular paced due to underlying AV block. Repeat troponin and get an echocardiogram for further evaluation and management. 2. Status post leadless Medtronic pacemaker. Based on the EKG, pacemaker is functioning normally. The patient has underlying complete AV block and sinus rhythm that has been ventricularly paced through the pacemaker. 3. Hypertension, on amlodipine 10 mg daily. 4. Hypothyroidism, on Synthroid. 5. History of brain bleed. Thank you very much, Dr. Colon, for allowing me to participate in the care of this patient. Please do not hesitate to contact me for any questions regarding my evaluation. William Gant M.D. DR: LENNOX JOB#: [id number] CC:
--- NOTE | 2019-01-30 18:39 | History & Physical ---
History and Physical History & Physicial Dictated for Int Med-Dr Colon no. [id number]. Chava Flores MD Jan 30, 2019 18:39
--- NOTE | 2019-01-30 19:01 | Cardiology Report ---
APPROVED REPORT EXAM: Two-dimensional and M-mode echocardiogram with Doppler and color Doppler. INDICATION Left ventricular function M-Mode DIMENSIONS IVSd1.2 (0.7-1.1cm)Left Atrium (MM)4.1 (1.6-4.0cm) LVDd4.9 (3.5-5.6cm)Aortic Root3.5 (2.0-3.7cm) PWd1.1 (0.7-1.1cm)Aortic Cusp Exc.1.8 (1.5-2.0cm) LVDs3.5 (2.5-4.0cm) PWs1.5 cm Technically difficult study due to very poor acoustical windows WITH POOR VISUALIZATION OF THE ENDOCARDIUM AND VALVULAR DETAIL . Normal left ventricular chamber size, systolic function and wall motion to extent visualized. Left ventricular ejection fraction estimated to be 55 %. Study quality precludes accurate assessment of regional wall motion. No evidence of left ventricular hypertrophy. Anterior Echo-free space, may be due to pericardial fat or effusion. All other cardiac chamber sizes are within normal limits. Focal aortic valve sclerosis with adequate cusp excursion. Thickened mitral valve leaflets with normal excursion. Mitral annulus and aortic root calcification. Pulmonic valve not visualized. Normal tricuspid valve structure. IVC at normal size with physiologic collapse. A color flow and spectral Doppler study was performed and revealed: No aortic regurgitation. Trace mitral regurgitation. Mitral diastolic velocities suggest reduced left ventricular relaxation c/w mild LV diastolic dysfunction (Grade I ). Trace tricuspid regurgitation. Tricuspid systolic velocities suggests peak right ventricular systolic pressure of 10 mmHg.
--- NOTE | 2019-01-30 19:31 | NUR ---
HAND-OFF: Report given to NEGAR Smith. Pt in stable condition.
--- NOTE | 2019-01-30 19:32 | NUR ---
NURSE NOTES: Received patient from Naz BILLS. Patient is awake and oriented x2, on room air, tolerating well showing no signs of respiratory distress.. IV site is Right wrist 18g and a Left hand 20g, both patent and asymptomatic. Condom catheter is patent and draining. Bed is locked, placed in lowest position, side rails up x3, bed alarm on, call light within reach. Will continue to monitor.
[2019-01-30 20:00] VITALS: BP 127/55
[2019-01-30] MEDS ORDERED: Sennosides 8.6mg tab ORAL SCH (21:00)
--- NOTE | 2019-01-30 23:30 | History and Physical Report ---
DATE OF ADMISSION: 01/29/2019 CHIEF COMPLAINT: The patient is a 88-year-old male, who presents with a chief complaint of chest pain. HISTORY OF PRESENT ILLNESS: The patient is a resident of [facility]. The patient herself is a poor historian secondary to Alzheimer's dementia. Much of the history and physical is taken from the patient's chart. As above, the patient is a resident of [facility]. According to staff at [facility], the patient began to experience chest pain yesterday, January 29, 2019. The patient was transported to [place] emergency room. The patient was admitted with chest pain to rule out acute coronary syndrome. REVIEW OF SYSTEMS: Unable to assess secondary to the patient's mental status. PAST MEDICAL HISTORY: Significant for: 1. Hypertension. 2. Hypothyroidism. 3. Alzheimer's dementia. 4. Glaucoma. 5. History of hemorrhagic stroke. 6. Complete atrioventricular block. PAST SURGICAL HISTORY: Significant for leadless pacemaker implantation. CURRENT MEDICATIONS: 1. Amlodipine 10 mg p.o. daily. 2. Lipitor 10 mg p.o. at bedtime. 3. Alphagan 1 drop to both eyes three times. 4. Calcium carbonate/vitamin D3, 500/100 one tab p.o. daily. 5. [place] 5/325 mg one tablet p.o. q.4 hours p.r.n. 6. Latanoprost one drop in each eye twice daily. 7. Levoxyl 0.05 mg p.o. daily. 8. Metformin 500 mg p.o. daily. 9. Phenobarbital 30 mg p.o. 3 times daily. 10. Terazosin 5 mg p.o. at bedtime. 11. Sodium chloride 15 mL p.o. daily. 12. Timolol 1 drop to each eye twice daily. ALLERGIES: No known drug allergies. SOCIAL HISTORY: The patient is single and is a resident of [facility]. The patient denies tobacco or alcohol use. PHYSICAL EXAMINATION: VITAL SIGNS: Temperature 99.8, respirations 18, pulse 45, and blood pressure 158/40. GENERAL: The patient is a well-developed and well-nourished male, in no apparent distress. HEENT: Eyes, pupils are equal and responsive to light and accommodation. Extraocular movements are intact. NECK: Supple without lymphadenopathy. CHEST: Lungs are clear to auscultation bilaterally without wheezes or rales. CARDIOVASCULAR: Bradycardic. Regular rhythm. S1, S2 are normal without murmurs, rubs, or gallops. ABDOMEN: Soft, nontender, and nondistended. Positive bowel sounds. No evidence of hepatosplenomegaly. Currently, no rebound or guarding noted. EXTREMITIES: Negative for clubbing, cyanosis, or edema. RECTAL/GENITAL: Not performed. NEUROLOGIC: Cranial nerves II through XII are intact without focal deficits. Motor strength is 5/5 bilaterally. Deep tendon reflexes are 2+ plantar. LABORATORY STUDIES: WBC 8.2, hemoglobin 9.6, hematocrit 29.1, and platelets 267,000. Sodium 137, potassium 4.7, chloride 105, CO2 25, BUN 25, creatinine 1.1, and glucose 115. Troponin 0.060. BNP elevated at 3690. Chest x-ray was reported as mild pulmonary vascular congestion consistent with congestive heart failure. ASSESSMENT: This is an 88-year-old male. 1. Bradycardia. 2. Chest pain. 3. Diabetes type 2. 4. Hypothyroidism. 5. Hypertension. 6. Hypercholesterolemia. 7. Alzheimer's dementia. 8. Glaucoma. 9. History of hemorrhagic stroke. TREATMENT: 1. Bradycardia/chest pain. Serial troponin levels will be performed. A Cardiology consultation has been obtained with Dr. William Gant. The patient has a history of complete atrioventricular block. We will follow recommendation of Cardiology. The patient is awaiting pacemaker check. 2. Diabetes type 2. Continue metformin as above. 3. Hypothyroidism. Continue Levoxyl as above. 4. Hypertension. Continue amlodipine as above. 5. Hypercholesterolemia. The patient is currently on atorvastatin. Continue atorvastatin as above. 6. Alzheimer's dementia. 7. Glaucoma. Continue eye drops as above. 8. History of hemorrhagic stroke. Chava Fagan M.D. DR: JOSSIE JOB#: [id number] CC:
[2019-01-31] VITALS: BP 120/70
[2019-01-31 04:00] VITALS: BP 131/52
[2019-01-31 05:02] LABS: BASOPHILS % (AUTO) 1.2 % (0.0-2.0); EOSINOPHILS % (AUTO) 6.4 % (0.0-3.0); HEMATOCRIT 27.2 % (42.0-52.0); LYMPHOCYTES % (AUTO) 26.1 % (20.0-45.0); MEAN CORPUSCULAR VOLUME 93 FL (80-99); MONOCYTES % (AUTO) 8.2 % (1.0-10.0); NEUTROPHILS % (AUTO) 58.2 % (45.0-75.0); PLATELET COUNT 272 K/UL (150-450); RED BLOOD COUNT 2.92 M/UL (4.70-6.10); RED CELL DISTRIBUTION WIDTH 12.5 % (11.6-14.8); WHITE BLOOD COUNT 6.8 K/UL (4.8-10.8)
[2019-01-31 05:44] LABS: ALANINE AMINOTRANSFERASE 58 U/L (12-78); ALBUMIN 2.3 G/DL (3.4-5.0); ALBUMIN/GLOBULIN RATIO 0.6 (1.0-2.7); ALKALINE PHOSPHATASE 151 U/L (46-116); ANION GAP 7 mmol/L (5-15); ASPARTATE AMINO TRANSFERASE 20 U/L (15-37); BILIRUBIN,TOTAL 0.2 MG/DL (0.2-1.0); BLOOD UREA NITROGEN 21 mg/dL (7-18); CALCIUM 8.1 MG/DL (8.5-10.1); CARBON DIOXIDE 26 MMOL/L (21-32); CHLORIDE 110 MMOL/L (98-107); POTASSIUM 4.3 MMOL/L (3.5-5.1); SODIUM 143 MMOL/L (136-145)
[2019-01-31] MEDS: NovoLOG Insulin Flexpen SUBQ SCH ×2 (06:21→11:30)
[2019-01-31] MEDS: Heparin 5000 units/ml inj SUBQ SCH ×2 (06:23→14:00)
--- NOTE | 2019-01-31 07:11 | NUR ---
HAND-OFF: Report given to Sara BILLS. Patient in stable condition.
--- NOTE | 2019-01-31 07:12 | NUR ---
NURSE NOTES: Received report from NEGAR Collado. Observed patient in bed, awake, alert and verbally responsive. Patient is on room air, no resp. distress noted. hall monitor shows sinus rhythm. Right wrist 18g and left hand 20g saline lock intact and patent. External catheter intact and draining well. Denies pain/discomfort at this time. Safety precautions in place, bed locked, alarmed, and in lowest position, side rails up x3, and call light left within reach. Will continue to monitor.
[2019-01-31 08:00] VITALS: BP 136/62
--- NOTE | 2019-01-31 08:33 | NUR ---
RADIOLOGY DEPT., CHEST X-RAY DONE.-P.DYE
[2019-01-31] MEDS: Aspirin Baby 81mg ORAL SCH (08:34)
--- NOTE | 2019-01-31 10:33 | NUR ---
*-* INSURANCE *-* ALL CLINICALS AND REVIEWS HAVE BEEN FAXED TO: [facility] P: [phone] F: [phone]
--- NOTE | 2019-01-31 11:15 | Pulmonology Progress Note ---
Assessment/Plan Problems: (1) Hypertension (2) ACS (acute coronary syndrome) (3) Diabetes mellitus (4) Adult hypothyroidism (5) Pacemaker Assessment/Plan pacemaker functioning properly according to admitting representative pt is blind and bed bound sliding scale diabetic diet eating very well dc planning Subjective ROS Limited/Unobtainable: No Constitutional: Reports: no symptoms HEENT: Repors: no symptoms Respiratory: Reports: no symptoms Allergies: Coded Allergies: No Known Allergies (Unverified , 01/29/19) Objective Last 24 Hour Vital Signs Date Time Temp Pulse Resp B/P (MAP) Pulse Ox O2 Delivery O2 Flow Rate FiO2 01/31/19 08:36 69 136/62 01/31/19 08:00 98.4 78 20 136/62 (86) 93 01/31/19 08:00 Room Air 01/31/19 07:52 71 01/31/19 04:00 Room Air 01/31/19 04:00 99.0 74 20 131/52 (78) 95 01/31/19 03:23 59 01/31/19 00:00 Room Air 01/31/19 00:00 98.4 50 24 120/70 (87) 94 01/30/19 23:25 50 01/30/19 20:00 98.9 50 24 127/55 (79) 96 01/30/19 20:00 Room Air 01/30/19 19:24 50 01/30/19 17:48 58 18 95 Room Air 95 01/30/19 16:00 Room Air 01/30/19 16:00 51 01/30/19 15:36 98.1 52 22 137/57 (83) 94 01/30/19 12:00 64 01/30/19 12:00 Room Air 01/30/19 12:00 97.7 64 20 117/51 (73) 95 Intake and Output 01/30/19 01/31/19 19:00 07:00 Intake Total 120 ml 120 ml Output Total 400 ml 500 ml Balance -280 ml -380 ml Intake Oral 120 ml 120 ml Output Urine Total 400 ml 500 ml # Bowel Movements 2 General Appearance: WD/WN HEENT: normocephalic, atraumatic Respiratory/Chest: chest wall non-tender, lungs clear, normal breath sounds Cardiovascular: normal peripheral pulses, normal rate Abdomen: normal bowel sounds, no organomegaly Genitourinary: normal external genitalia Extremities: no clubbing Neurologic/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 Complete Laboratory Tests 01/31/19 03:20: White Blood Count 6.8, Red Blood Count 2.92L, Hemoglobin 9.0L, Hematocrit 27.2L , Mean Corpuscular Volume 93, Mean Corpuscular Hemoglobin 30.7, Mean Corpuscular Hemoglobin Concent 32.9, Red Cell Distribution Width 12.5, Platelet Count 272, Mean Platelet Volume 5.4L, Neutrophils (%) (Auto) 58.2, Lymphocytes ( %) (Auto) 26.1, Monocytes (%) (Auto) 8.2, Eosinophils (%) (Auto) 6.4H, Basophils (%) (Auto) 1.2, Sodium Level 143, Potassium Level 4.3, Chloride Level 110H, Carbon Dioxide Level 26, Anion Gap 7, Blood Urea Nitrogen 21H, Creatinine 1.0, Estimat Glomerular Filtration Rate , Glucose Level 91, Calcium Level 8.1L, Total Bilirubin 0.2, Aspartate Amino Transf (AST/SGOT) 20, Alanine Aminotransferase (ALT/SGPT) 58, Alkaline Phosphatase 151H, Troponin I 0.041, Pro -B-Type Natriuretic Peptide 2303H, Total Protein 6.0L, Albumin 2.3L, Globulin 3.7, Albumin/Globulin Ratio 0.6L, Thyroid Stimulating Hormone (TSH) 6.108H 01/31/19 03:30: Magnesium Level 1.6L Current Medications Medications (Trade) Dose Ordered Sig/Shari Route PRN Reason Start Time Stop Time Status Last Admin Dose Admin Acetaminophen (Tylenol) 650 mg Q4H PRN ORAL FEVER 01/29/19 22:15 02/28/19 22:14 Acetaminophen/ Hydrocodone Bitart ([place] 5/325) 1 tab Q4H PRN ORAL For Pain 01/29/19 22:15 02/05/19 22:14 Albuterol/ Ipratropium (Albuterol/ Ipratropium) 3 ml Q4H PRN HHN Shortness of Breath 01/29/19 22:15 02/03/19 22:14 Amlodipine Besylate (Norvasc) 10 mg DAILY ORAL 01/30/19 09:00 03/01/19 08:59 01/31/19 08:36 Aspirin (ASA) 162 mg DAILY ORAL 01/30/19 09:00 03/01/19 08:59 01/31/19 08:34 Dextrose (Dextrose 50%) 25 ml Q30M PRN IV Hypoglycemia 01/29/19 22:15 02/28/19 22:14 Dextrose (Dextrose 50%) 50 ml Q30M PRN IV Hypoglycemia 01/29/19 22:15 02/01/19 22:14 Diltiazem HCl (Cardizem) 10 mg Q1H PRN IV heart rate more than 120, 01/29/19 22:15 02/28/19 22:14 Enalaprilat (Vasotec) 2.5 mg Q6H PRN IV sbp more than 160 01/29/19 22:30 02/28/19 22:14 Heparin Sodium (Porcine) (Heparin 5000 units/ml) 5,000 units EVERY 8 HOURS SUBQ 01/30/19 06:00 03/01/19 05:59 01/31/19 06:23 Insulin Aspart (NovoLOG) BEFORE MEALS AND HS SUBQ 01/30/19 06:30 03/01/19 06:29 Levothyroxine Sodium (Synthroid) 50 mcg DAILY@0630 ORAL 01/30/19 06:30 03/01/19 06:29 01/31/19 06:22 Morphine Sulfate (Morphine Sulfate) 2 mg Q4H PRN IVP severe Pain (Pain Scale 7-10) 01/29/19 22:15 02/05/19 22:14 Nitroglycerin (Ntg) 0.4 mg Q5M PRN SL Prn Chest Pain 01/29/19 22:15 02/28/19 22:14 Ondansetron HCl (Zofran) 4 mg Q6H PRN IVP Nausea & Vomiting 01/29/19 22:15 02/28/19 22:14 Pantoprazole (Protonix) 40 mg DAILY ORAL 01/30/19 09:00 03/01/19 08:59 01/31/19 08:33 Polyethylene Glycol (Miralax) 17 gm DAILYPRN PRN ORAL Constipation 01/29/19 22:15 02/28/19 22:14 Sennosides (Senokot) 8.6 mg BEDTIME ORAL 01/30/19 21:00 03/01/19 20:59 01/30/19 20:56 Temazepam (Restoril) 15 mg HSPRN PRN ORAL Insomnia 01/29/19 22:15 02/05/19 22:14 Eliseo Pedraza MD Jan 31, 2019 11:15
--- NOTE | 2019-01-31 11:37 | Internal Med Progress Note ---
Subjective Date of Service: Jan 31, 2019 Physician Name Chava Fagan Attending Physician Ad Colon MD Current Medications Medications (Trade) Dose Ordered Sig/Shari Route PRN Reason Start Time Stop Time Status Last Admin Dose Admin Acetaminophen (Tylenol) 650 mg Q4H PRN ORAL FEVER 01/29/19 22:15 02/28/19 22:14 Acetaminophen/ Hydrocodone Bitart ([place] 5/325) 1 tab Q4H PRN ORAL For Pain 01/29/19 22:15 02/05/19 22:14 Albuterol/ Ipratropium (Albuterol/ Ipratropium) 3 ml Q4H PRN HHN Shortness of Breath 01/29/19 22:15 02/03/19 22:14 Amlodipine Besylate (Norvasc) 10 mg DAILY ORAL 01/30/19 09:00 03/01/19 08:59 01/31/19 08:36 Aspirin (ASA) 162 mg DAILY ORAL 01/30/19 09:00 03/01/19 08:59 01/31/19 08:34 Dextrose (Dextrose 50%) 25 ml Q30M PRN IV Hypoglycemia 01/29/19 22:15 02/28/19 22:14 Dextrose (Dextrose 50%) 50 ml Q30M PRN IV Hypoglycemia 01/29/19 22:15 02/01/19 22:14 Diltiazem HCl (Cardizem) 10 mg Q1H PRN IV heart rate more than 120, 01/29/19 22:15 02/28/19 22:14 Enalaprilat (Vasotec) 2.5 mg Q6H PRN IV sbp more than 160 01/29/19 22:30 02/28/19 22:14 Heparin Sodium (Porcine) (Heparin 5000 units/ml) 5,000 units EVERY 8 HOURS SUBQ 01/30/19 06:00 03/01/19 05:59 01/31/19 06:23 Insulin Aspart (NovoLOG) BEFORE MEALS AND HS SUBQ 01/30/19 06:30 03/01/19 06:29 Levothyroxine Sodium (Synthroid) 50 mcg DAILY@0630 ORAL 01/30/19 06:30 03/01/19 06:29 01/31/19 06:22 Magnesium Sulfate 100 ml @ 100 mls/hr Q1H IVPB 01/31/19 12:45 01/31/19 14:44 Morphine Sulfate (Morphine Sulfate) 2 mg Q4H PRN IVP severe Pain (Pain Scale 7-10) 01/29/19 22:15 02/05/19 22:14 Nitroglycerin (Ntg) 0.4 mg Q5M PRN SL Prn Chest Pain 01/29/19 22:15 02/28/19 22:14 Ondansetron HCl (Zofran) 4 mg Q6H PRN IVP Nausea & Vomiting 01/29/19 22:15 02/28/19 22:14 Pantoprazole (Protonix) 40 mg DAILY ORAL 01/30/19 09:00 03/01/19 08:59 01/31/19 08:33 Polyethylene Glycol (Miralax) 17 gm DAILYPRN PRN ORAL Constipation 01/29/19 22:15 02/28/19 22:14 Sennosides (Senokot) 8.6 mg BEDTIME ORAL 01/30/19 21:00 03/01/19 20:59 01/30/19 20:56 Temazepam (Restoril) 15 mg HSPRN PRN ORAL Insomnia 01/29/19 22:15 02/05/19 22:14 Allergies: Coded Allergies: No Known Allergies (Unverified , 01/29/19) ROS Limited/Unobtainable: No Constitutional: Reports: no symptoms HEENT: Reports: no symptoms Cardiovascular: Reports: chest pain Respiratory: Reports: no symptoms Gastrointestinal/Abdominal: Reports: no symptoms Genitourinary: Reports: no symptoms Neurologic/Psychiatric: Reports: no symptoms Subjective 88 YO M admitted with chest pain. Cover for Int Med-Dr Colon. [facility] Objective Last Vital Signs Date Time Temp Pulse Resp B/P (MAP) Pulse Ox O2 Delivery O2 Flow Rate FiO2 01/31/19 08:36 69 136/62 01/31/19 08:00 98.4 20 93 01/31/19 08:00 Room Air 01/30/19 17:48 95 Laboratory Tests Test 01/31/19 03:20 01/31/19 03:30 White Blood Count 6.8 K/UL (4.8-10.8) Red Blood Count 2.92 M/UL (4.70-6.10) L Hemoglobin 9.0 G/DL (14.2-18.0) L Hematocrit 27.2 % (42.0-52.0) L Mean Corpuscular Volume 93 FL (80-99) Mean Corpuscular Hemoglobin 30.7 PG (27.0-31.0) Mean Corpuscular Hemoglobin Concent 32.9 G/DL (32.0-36.0) Red Cell Distribution Width 12.5 % (11.6-14.8) Platelet Count 272 K/UL (150-450) Mean Platelet Volume 5.4 FL (6.5-10.1) L Neutrophils (%) (Auto) 58.2 % (45.0-75.0) Lymphocytes (%) (Auto) 26.1 % (20.0-45.0) Monocytes (%) (Auto) 8.2 % (1.0-10.0) Eosinophils (%) (Auto) 6.4 % (0.0-3.0) H Basophils (%) (Auto) 1.2 % (0.0-2.0) Sodium Level 143 MMOL/L (136-145) Potassium Level 4.3 MMOL/L (3.5-5.1) Chloride Level 110 MMOL/L (98-107) H Carbon Dioxide Level 26 MMOL/L (21-32) Anion Gap 7 mmol/L (5-15) Blood Urea Nitrogen 21 mg/dL (7-18) H Creatinine 1.0 MG/DL (0.55-1.30) Estimat Glomerular Filtration Rate mL/min (>60) Glucose Level 91 MG/DL (74-106) Calcium Level 8.1 MG/DL (8.5-10.1) L Total Bilirubin 0.2 MG/DL (0.2-1.0) Aspartate Amino Transf (AST/SGOT) 20 U/L (15-37) Alanine Aminotransferase (ALT/SGPT) 58 U/L (12-78) Alkaline Phosphatase 151 U/L (46-116) H Troponin I 0.041 ng/mL (0.000-0.056) Pro-B-Type Natriuretic Peptide 2303 pg/mL (0-125) H Total Protein 6.0 G/DL (6.4-8.2) L Albumin 2.3 G/DL (3.4-5.0) L Globulin 3.7 g/dL Albumin/Globulin Ratio 0.6 (1.0-2.7) L Thyroid Stimulating Hormone (TSH) 6.108 uiU/mL (0.358-3.740) Magnesium Level 1.6 MG/DL (1.8-2.4) L Microbiology Date/Time Source Procedure Growth Status 01/29/19 18:40 Nasal Nares Left MRSA Culture - Final NO METHICILLIN RESISTANT STAPH AUREUS... Complete Intake and Output 01/30/19 01/31/19 19:00 07:00 Intake Total 120 ml 120 ml Output Total 400 ml 500 ml Balance -280 ml -380 ml Intake Oral 120 ml 120 ml Output Urine Total 400 ml 500 ml # Bowel Movements 2 Objective PHYSICAL EXAMINATION: GENERAL: The patient is a well-developed and well-nourished male, in no apparent distress. HEENT: Eyes, pupils are equal and responsive to light and accommodation. Extraocular movements are intact. NECK: Supple without lymphadenopathy. CHEST: Lungs are clear to auscultation bilaterally without wheezes or rales. CARDIOVASCULAR: Bradycardic. Regular rhythm. S1, S2 are normal without murmurs, rubs, or gallops. ABDOMEN: Soft, nontender, and nondistended. Positive bowel sounds. No evidence of hepatosplenomegaly. Currently, no rebound or guarding noted. EXTREMITIES: Negative for clubbing, cyanosis, or edema. RECTAL/GENITAL: Not performed. NEUROLOGIC: Cranial nerves II through XII are intact without focal deficits. Motor strength is 5/5 bilaterally. Deep tendon reflexes are 2+ plantar. Assessment/Plan Assessment/Plan ASSESSMENT: This is an 88-year-old male. 1. Bradycardia. 2. Chest pain. 3. Diabetes type 2. 4. Hypothyroidism. 5. Hypertension. 6. Hypercholesterolemia. 7. Alzheimer's dementia. 8. Glaucoma. 9. History of hemorrhagic stroke. 1.. Leadless pacemaker TREATMENT: 1. Bradycardia/chest pain. Serial troponin levels will be performed. A Cardiology consultation has been obtained with Dr. William Gant. The patient has a history of complete atrioventricular block. We will follow recommendation of Cardiology. The patient is awaiting pacemaker check. 2. Diabetes type 2. Continue metformin as above. 3. Hypothyroidism. Continue Levoxyl as above. 4. Hypertension. Continue amlodipine as above. 5. Hypercholesterolemia. The patient is currently on atorvastatin. Continue atorvastatin as above. 6. Alzheimer's dementia. 7. Glaucoma. Continue eye drops as above. 8. History of hemorrhagic stroke. Chava Fagan MD Jan 31, 2019 11:37
[2019-01-31 12:00] VITALS: BP 150/73
--- NOTE | 2019-01-31 12:11 | Cardiac Electrophysiology PN ---
Assessment/Plan Assessment/Plan 1. Troponin leak. The 2 elevated levels are nonspecific, low and flat. 2 other trops are negative. The patient has dehydration and this may be related to that. His EKG is not interpretable and is mostly ventricular paced due to underlying AV block. 2. Status post leadless Medtronic pacemaker. Based on the EKG, pacemaker is functioning normally. The patient has underlying complete AV block and sinus rhythm that has been ventricularly paced through the pacemaker. 3. Hypertension, on amlodipine 10 mg daily. 4. Hypothyroidism, on Synthroid. 5. History of brain bleed. Subjective Subjective No significant change on SDU Objective Last 24 Hour Vital Signs Date Time Temp Pulse Resp B/P (MAP) Pulse Ox O2 Delivery O2 Flow Rate FiO2 01/31/19 08:36 69 136/62 01/31/19 08:00 98.4 78 20 136/62 (86) 93 01/31/19 08:00 Room Air 01/31/19 07:52 71 01/31/19 04:00 Room Air 01/31/19 04:00 99.0 74 20 131/52 (78) 95 01/31/19 03:23 59 01/31/19 00:00 Room Air 01/31/19 00:00 98.4 50 24 120/70 (87) 94 01/30/19 23:25 50 01/30/19 20:00 98.9 50 24 127/55 (79) 96 01/30/19 20:00 Room Air 01/30/19 19:24 50 01/30/19 17:48 58 18 95 Room Air 95 01/30/19 16:00 Room Air 01/30/19 16:00 51 01/30/19 15:36 98.1 52 22 137/57 (83) 94 Intake and Output 01/30/19 01/31/19 19:00 07:00 Intake Total 120 ml 120 ml Output Total 400 ml 500 ml Balance -280 ml -380 ml Intake Oral 120 ml 120 ml Output Urine Total 400 ml 500 ml # Bowel Movements 2 Laboratory Tests Test 01/31/19 03:20 01/31/19 03:30 White Blood Count 6.8 K/UL (4.8-10.8) Red Blood Count 2.92 M/UL (4.70-6.10) L Hemoglobin 9.0 G/DL (14.2-18.0) L Hematocrit 27.2 % (42.0-52.0) L Mean Corpuscular Volume 93 FL (80-99) Mean Corpuscular Hemoglobin 30.7 PG (27.0-31.0) Mean Corpuscular Hemoglobin Concent 32.9 G/DL (32.0-36.0) Red Cell Distribution Width 12.5 % (11.6-14.8) Platelet Count 272 K/UL (150-450) Mean Platelet Volume 5.4 FL (6.5-10.1) L Neutrophils (%) (Auto) 58.2 % (45.0-75.0) Lymphocytes (%) (Auto) 26.1 % (20.0-45.0) Monocytes (%) (Auto) 8.2 % (1.0-10.0) Eosinophils (%) (Auto) 6.4 % (0.0-3.0) H Basophils (%) (Auto) 1.2 % (0.0-2.0) Sodium Level 143 MMOL/L (136-145) Potassium Level 4.3 MMOL/L (3.5-5.1) Chloride Level 110 MMOL/L (98-107) H Carbon Dioxide Level 26 MMOL/L (21-32) Anion Gap 7 mmol/L (5-15) Blood Urea Nitrogen 21 mg/dL (7-18) H Creatinine 1.0 MG/DL (0.55-1.30) Estimat Glomerular Filtration Rate mL/min (>60) Glucose Level 91 MG/DL (74-106) Calcium Level 8.1 MG/DL (8.5-10.1) L Total Bilirubin 0.2 MG/DL (0.2-1.0) Aspartate Amino Transf (AST/SGOT) 20 U/L (15-37) Alanine Aminotransferase (ALT/SGPT) 58 U/L (12-78) Alkaline Phosphatase 151 U/L (46-116) H Troponin I 0.041 ng/mL (0.000-0.056) Pro-B-Type Natriuretic Peptide 2303 pg/mL (0-125) H Total Protein 6.0 G/DL (6.4-8.2) L Albumin 2.3 G/DL (3.4-5.0) L Globulin 3.7 g/dL Albumin/Globulin Ratio 0.6 (1.0-2.7) L Thyroid Stimulating Hormone (TSH) 6.108 uiU/mL (0.358-3.740) Magnesium Level 1.6 MG/DL (1.8-2.4) L Microbiology Date/Time Source Procedure Growth Status 01/29/19 18:40 Nasal Nares Left MRSA Culture - Final NO METHICILLIN RESISTANT STAPH AUREUS... Complete Objective HEAD AND NECK: No JVD. LUNGS: Clear. CARDIOVASCULAR: Regular S1 and S2 with no gallop or murmur. ABDOMEN: Soft. EXTREMITIES: 1+ pitting edema. William Gant MD Jan 31, 2019 12:11
--- NOTE | 2019-01-31 13:41 | Diagnostic Imaging Report ---
APPROVED REPORT CPT Code: 88935 Present Symptoms Comments: Pain Technically difficult study (bilateral contractures of the hip and knee). BILATERAL: Imaging reveals a patent deep venous system bilaterally. There is no evidence of thrombus within the femoral, popliteal or tibial segments. The greater saphenous veins are also within normal limits. Doppler indicates normal spontaneous flow within these segments.
--- NOTE | 2019-01-31 13:56 | NUR ---
NURSE NOTES: Report given to Silvana Manzo.
[2019-01-31] MEDS ORDERED: D5W 275ml ONE (14:39)
[2019-01-31] MEDS ORDERED: Tubing IV Secondary IV ONE (14:39)
--- NOTE | 2019-01-31 14:41 | NUR ---
NURSE NOTES: Patient was picked up by [facility] ambulance for discharge to [facility]. Wound photos taken. Peripheral IV on right wrist and left hand removed. monitoring engineer removed prior to discharge. Patient in stable condition.
--- NOTE | 2019-01-31 18:29 | Cardiology Report ---
APPROVED REPORT EKG Measurement Heart [id number] sinus bradycardia with V paced beats Abnormal ECG
--- NOTE | 2019-01-31 18:36 | Cardiology Report ---
APPROVED REPORT EKG Measurement Heart [id number] Electronic pacemaker- V paced rhythm Abnormal ECG
--- NOTE | 2019-02-01 09:55 | Discharge Summary ---
Discharge Summary Discharge Summary _ DATE OF ADMISSION: 01/29/2019 DATE OF DISCHARGE: 01/31/2019 DISCHARGED BY: Dr. Colon REASON FOR ADMISSION: 88 years old male with past medical history of hypertension, bilateral glaucoma , legally blind, seizure disorder, history of intracranial hemorrhage, dementia , presented for evaluation due to chest pain. Chest pain reported to be intermittent for the past 2 days. Pain was located over the entire chest and felt like pressure, no radiation. No associated shortness of breath. No back pain, lightheadedness, loss of consciousness, vomiting, diaphoresis, abdominal pain. Upon evaluation patient appeared to be bradycardic . Laboratory work-up revealed anemia with hemoglobin 9.6 ,hematocrit 29.1. BUN 25 creatinine 1.1. Stable electrolytes. Glucose 115. AST 46 , ALT 74. Troponin 0.06 , pro BNP 3690 . EKG revealed ventricularly paced rate with bradycardia with underlying third-degree AV block. Patient subsequently admitted to [facility] for further management CONSULTANTS: tripe washer Dr. Blount pulmonary Dr. Pedraza HOSPITAL COURSE: Patient admitted to [facility]. Maritime Officer and industrial real estate agent followed. Serial troponin revealed second troponin 0.06, and the last two negative. According to tripe washer , patient had troponin leak since two elevated troponin were nonspecific , borderline elevated, low and flat. Patient most likely had dehydration, and troponin leak could have been related to it. EKG was not interpretable, showed ventricular paced rhythm . Patient had a leadless Medtronic pacemaker. Based on EKG pacemaker was functioning normally. Patient with underlying complete AV block and sinus rhythm ventricularly paced through the pacemaker. Blood pressure was managed with calcium channel jovita. Antiplatelet therapy with aspirin continued. Lipid panel stable. Statin continued. Echocardiogram revealed ejection fraction of 55%. Poor visualization of endocardium and valvular detail. Normal left ventricular chamber size systolic function and wall motion to the extent visualized. No evidence of left ventricular hypertrophy. Right ventricular systolic pressure of 10. Venous duplex bilateral lower extremity revealed no evidence of acute DVT. DVT prophylaxis provided. Chest x-ray demonstrated mild pulmonary vascular congestion. Supplemental oxygen provided as needed to keep pulse oximetry above 92%. Pulse oximetry was stable on room air. Pulmonary toilet via handheld nebulizing therapy with bronchodilator provided as needed. Blood sugar was managed with sliding scale of insulin. Patient was provided with diabetic diet. B lood sugar appeared to be stable. Synthroid was continued. Glaucoma drop continued. Fall precaution maintained. Magnesium was replaced. Pain management addressed. Supportive care provided. Bowel regimen instituted. Patient clinically stabilized and was ready for transfer back to correction facility for continuation of care. FINAL DIAGNOSES: Troponin leak Bradycardia - resolved Status post leadless Medtronic pacemaker (with underlying complete AV block and sinus rhythm, ventricularly paced through the pacemaker) Hypertension Hypothyroidism Hypercholesterolemia History of hemorrhagic stroke Diabetes mellitus Dementia Glaucoma with bilateral blindness DISCHARGE MEDICATIONS: See Medication Reconciliation list. DISCHARGE INSTRUCTIONS: Patient was discharged to the correction facility. Follow up with medical doctor at the facility. I have been assigned to dictate discharge summary for this account. I was not involved in the patient's management. Nellie Pate NP Feb 01, 2019 09:55
== END 2019-01-31 14:40 | DRG 309 ==
LOC: EDBD 18:14 → EMR 18:32 → EDBEDREQ 20:19 → EDBEDREQSVC 20:19 → EDBEDREQ 20:21 → EDBEDREQSVC 20:28 → EDBEDREQ 20:28 → EDBEDREQTM 20:28 → 2W 20:35 → EDBEDREQ 20:53
DX: R00.1 Bradycardia, unspecified (principal); I24.9 Acute ischemic heart disease, unspecified; I10 Essential (primary) hypertension; E11.8 Type 2 diabetes mellitus with unspecified complications; E03.9 Hypothyroidism, unspecified; H40.9 Unspecified glaucoma; H54.8 Legal blindness, as defined in USA; Z95.0 Presence of cardiac pacemaker; G30.9 Alzheimer's disease, unspecified; F02.80 Dementia in other diseases classified elsewhere, unspecified severity, without behavioral disturbance, psychotic disturbance, mood disturbance, and anxiety; Z86.73 Personal history of transient ischemic attack (TIA), and cerebral infarction without residual deficits; E78.00 Pure hypercholesterolemia, unspecified; E86.0 Dehydration
CPT/HCPCS: 36415; 71045; 80048; 80053; 80061; 82550; 82553; 82962; 83735; 83880; 84100; 84443; 84484; 85025; 85610; 85730; 86140; 87081; 93005; 93306; 93970; 94664; 96374; 99285; J1815